=== PATIENT | female | born 1995 ===

== ENCOUNTER 2021-10-28 11:28 | Emergency (ER) | payer OTHER ==
[2021-10-28 12:09] VITALS: BP 129/78; PULSE 85; TEMP 98.9; BMI 32.2
[2021-10-28] MEDS ORDERED: IBUPROFEN 600 MG TABLET (FP) PO ONE ×2 (12:20→12:29)
[2021-10-28] MEDS ORDERED: BACITRACIN 15 GM TUBE TOPICAL OINTMENT ONE (12:28)
== END 2021-10-28 12:39 | disposition home or self-care (01) ==
LOC: JER 11:28 → JERFT 11:28
DX: S90.222A Contusion of left lesser toe(s) with damage to nail, initial encounter (principal); W50.0XXA Accidental hit or strike by another person, initial encounter
CPT/HCPCS: 73630-TC-LT; 99283-25